=== PATIENT | female | born 1995 | race Caucasian/White ===

== ENCOUNTER 2017-03-27 00:07 | Emergency (ER) | payer OTHER ==
[2017-03-27 00:14] VITALS: BMI 42.3
[2017-03-27] MEDS ORDERED: METOCLOPRAMIDE HCL INJECTION 10 MG/2 ML VIAL IVPB ONE (02:32)
[2017-03-27] MEDS ORDERED: SODIUM CHLORIDE 1,000 ML IV STA (02:32)
[2017-03-27] MEDS ORDERED: METOCLOPRAMIDE HCL INJECTION 10 MG/2 ML VIAL ONE (02:38)
[2017-03-27 02:56] LABS: BASOPHIL 0.3 % (0-2.0); EOSINOPHIL 0.4 % (0-4.5); MCH 30.1 pg (25.7-33.7); MCHC 34.5 g/dl (32.0-36.0); MEAN CELL VOLUME 87.3 fl (80-96); MEAN PLT VOLUME 9.7 fl (7.5-11.1); NEUTROPHILS 80.7 % (42.8-82.8); PLATELET COUNT 159 K/MM3 (134-434); RDW 13.6 % (11.6-15.6); WHITE BLOOD COUNT 7.8 K/mm3 (4.0-10.0)
--- NOTE | 2017-03-27 03:22 | PDOC ---
History of Present Illness - General Chief Complaint: Pain Stated Complaint: PAIN Time Seen by Provider: 03/27/17 02:07 History Source: Patient, Significant Other Exam Limitations: No Limitations - History of Present Illness Travel History: No Initial Comments: 03/27/17 03:17 21yo Female patient 18 weeks presents to ED c/o "stomach pains," nausea /vomiting with poor appetite since 12 noon yesterday. Patient states she has tried drinking Aurora and Sera janel, but unable to keep it down. She reports stool softener use w/ Last BM at 8pm. Patient denies vaginal bleeding, discharge , odor, dysuria, hematuria, constipation, diarrhea, or any other complaints at this time. Timing/Duration: reports: getting worse Quality: reports: mild Abdominal Pain Onset Location: reports: epigastric Pain Radiation: reports: no radiation Activities at Onset: reports: no specific activity Treatment Prior to Arrive: improves with: laxative. worse with: analgesics, antacids, cold pack, heat, enema, other Aggravating Factors: worse with: None, Defecation, Eating, Emotional upset, Exertion, [place], Movement, Voiding, Change in position Alleviating Factors: improves with: Defecation. worse with: None, Belching, Shallow Breathing, Eating, Holding Breath, Passing Gas, Change in Position, Rest , Voiding, Vomiting Past History - Travel Traveled outside of the country in the last 30 days: No Close contact w/someone who was outside of country & ill: No - Past Medical History Allergies/Adverse Reactions: Allergies Allergy/AdvReac Type Severity Reaction Status Date / Time No Known Allergies Allergy Verified 03/27/17 00:14 Home Medications: Ambulatory Orders Amoxicillin - [Amoxicillin 500mg Capsule -] 500 mg PO BID #14 capsule 03/27/17 Other medical history: denies - Psycho/Social/Smoking Cessation Hx Suicidal Ideation: No Smoking Status: No Smoking History: Never smoked Number of Cigarettes Smoked Daily: 0 Abd/GI Specific PMHX - Complaint Specific PMHX Colitis: No Diverticulitis: No Gall Bladder Disease: No GERD: No Hepatitis: No Irritable Bowel Synd (IBS): No Pancreatitis: No GI Ulcer Disease: No Review of Systems - Review of Systems Able to Perform ROS?: Yes Is the patient limited Austrian proficient: No Constitutional: No: Chills, Fever Cardiac (ROS): No: Chest Pain, Palpitations ABD/GI: Yes: Nausea, Poor Fluid Intake, Vomiting, Abdominal cramping ( Epigastric region). No: Constipated, Diarrhea, Poor Appetite : No: Burning, Dysuria, Frequency, Flank Pain, Hematuria, Pain, Urgency Musculoskeletal: No: Back Pain Hematologic/Lymphatic: Yes: Symptoms Reported *Physical Exam - Vital Signs Last Vital Signs Temp Pulse Resp BP Pulse Ox 100.7 F H 109 H 18 129/70 99 03/27/17 00:11 03/27/17 00:11 03/27/17 00:11 03/27/17 00:11 03/27/17 00:11 - Physical Exam General Appearance: Yes: Nourished, Appropriately Dressed. No: Apparent Distress, Mild Distress, Moderate Distress, Severe Distress Neck: positive: Trachea midline, Supple. negative: Decreased range of motion, Stridor, Lymphadenopathy (R), Lymphadenopathy (L) Respiratory/Chest: positive: Lungs Clear, Normal Breath Sounds. negative: Chest Tender, Respiratory Distress, Accessory Muscle Use, Labored Respiration, Rapid RR Cardiovascular: positive: Regular Rhythm, Regular Rate Gastrointestinal/Abdominal: positive: Normal Bowel Sounds, Soft, Distended (18 weeks preg). negative: Guarding, Rebound, Tenderness Musculoskeletal: positive: Normal Inspection. negative: CVA Tenderness Extremity: positive: Normal Capillary Refill, Normal Inspection, Normal Range of Motion. negative: Pedal Edema, Swelling, Calf Tenderness, Erythema, Inflammation Integumentary: positive: Normal Color, Dry, Warm. negative: Erythema, Rash, Swelling Neurologic: positive: memorandum statement clerk II-XII NML intact, Fully Oriented, Alert, Normal Mood/ Affect, Normal Response, Motor Strength /5 ED Treatment Course - LABORATORY CBC & Chemistry Diagram: 03/27/17 02:00 03/27/17 02:00 - ADDITIONAL ORDERS Additional order review: 03/27/17 02:00 RBC 4.33 MCV 87.3 MCHC 34.5 RDW 13.6 MPV 9.7 Neutrophils % 80.7 Lymphocytes % 13.1 Monocytes % 5.5 Eosinophils % 0.4 Basophils % 0.3 - Medications Given in the ED: ED Medications Discontinued Medications Generic Name Dose Route Start Last Admin Trade Name Freq PRN Reason Stop Dose Admin Metoclopramide HCl 10 mg 03/27/17 02:32 03/27/17 02:59 Reglan Injection - IVPB 03/27/17 02:33 10 mg ONCE ONE Administration Medical Decision Making - Medical Decision Making 03/27/17 05:12 Patient reports feeling better. Would like to go home and will return in the morning if symptoms return or worsen. *DC/Admit/Observation/Transfer Diagnosis at time of Disposition: Mild dehydration UTI (urinary tract infection) Qualifiers: Urinary tract infection type: urethritis Qualified Code(s): N34.2 - Other urethritis - Discharge Dispostion Disposition: HOME Condition at time of disposition: Improved Admit: No - Prescriptions Prescriptions: Amoxicillin - [Amoxicillin 500mg Capsule -] 500 mg PO BID #14 capsule - Patient Instructions Printed Discharge Instructions: DI for Urinary Tract Infection (UTI) Additional Instructions: FOLLOW UP WITH YOUR PRIMARY CARE PROVIDER/OB-TOOL MAINTENANCE TECHNICIAN. CALL TO SCHEDULE APPOINTMENT. TAKE MEDICATIONS PRESCRIBED. DRINK PLENTY FLUIDS AND INCREASE YOUR CALORIE INTAKE YOU ARE EATING FOR 2 PEOPLE. RETURN IF SYMPTOMS WORSEN OR ANY CONCERNS DISCUSSED. Print Language: KHMER
[2017-03-27 03:28] LABS: ALBUMIN 3.3 g/dl (3.4-5.0); ALK PHOS 68 U/L (45-117); AMYLASE 33 U/L (25-115); ANION GAP 12 (8-16); BILIRUBIN,TOTAL 0.5 mg/dL (0.2-1.0); CALCIUM 8.9 mg/dL (8.5-10.1); CO2 23 mmol/L (21-32); CREATININE 0.5 mg/dL (0.55-1.02); GLUCOSE,RANDOM 96 mg/dL (74-106); SGOT/AST 29 U/L (15-37); SGPT/ALT 38 U/L (12-78); TOT PROT 7.3 g/dl (6.4-8.2)
[2017-03-27 04:29] LABS: URINE APPEARANCE CLEAR; URINE BILIRUBIN NEGATIVE (NEGATIVE); URINE BLOOD NEGATIVE (NEGATIVE); URINE COLOR STRAW; URINE GLUCOSE (UA) NEGATIVE (NEGATIVE); URINE KETONE 2+ (NEGATIVE); URINE NITRITE NEGATIVE (NEGATIVE); URINE PROTEIN NEGATIVE (NEGATIVE); URINE UROBILINOGEN NEGATIVE E.U./dl (0.2-1.0)
[2017-03-27 04:37] LABS: URINE LEUK ESTERASE TRACE (NEGATIVE)
[2017-03-27 04:42] LABS: URINE MUCUS RARE; URINE RBC 1 /hpf (0-3); URINE WBC 6 /hpf (3-5)
[2017-03-27 05:15] VITALS: BP 99/45; PULSE 93; TEMP 99.1
[2017-03-27] MEDS ORDERED: AMOXICILLIN 500 MG CAPSULE (FP) PO ONE (05:24)
[2017-03-27] MEDS ORDERED: AMOXICILLIN 500 MG CAPSULE (FP) ONE (05:27)
== END 2017-03-27 05:31 | disposition home or self-care (01) ==
LOC: JER 00:07
PROC: 3E033GC Introduction of Other Therapeutic Substance into Peripheral Vein, Percutaneous Approach (ICD-10-PCS; principal; 2017-03-27)
DX: O23.22 Infections of urethra in pregnancy, second trimester (principal); Z3A.18 18 weeks gestation of pregnancy; E86.0 Dehydration
CPT/HCPCS: 36415; 80053; 81003; 81015; 82150; 83690; 85025; 87086; 96374; 99283-25

== ENCOUNTER 2017-08-27 12:20 | Inpatient (IN) | payer OTHER ==
--- NOTE | 2017-08-27 15:10 | HP ---
Past Medical History - Admission Chief Complaint: Labor pain History of Present Illness: 22 yo , @ 40 weeks gestation, EDC 08/27/17, presents c/o labor pain not associated with rupture of membrane. History Source: Patient Limitations to Obtaining History: No Limitations - Past Medical History ...: 1 ...Para: 0 ...EDC by Sono: 08/27/17 - Past Surgical History Past Surgical History: Yes: None Hx Myomectomy: No Hx Transabdominal Cerclage: No - Smoking History Smoking history: Never smoked Aproximately how many cigarettes per day: 0 - Alcohol/Substance Use Hx Alcohol Use: No History of Substance Use: reports: None - Social History Usual Living Arrangement: Yes: With Significant Other History of Recent Travel: No Home Medications - Allergies Allergies/Adverse Reactions: Allergies Allergy/AdvReac Type Severity Reaction Status Date / Time Fish Containing Products Allergy Verified 08/27/17 13:12 - Home Medications Home Medications: Ambulatory Orders NK [No Known Home Medication] 07/29/17 Family Disease History - Family Disease History Family History: Unremarkable Review of Systems - Review of Systems Constitutional: reports: No Symptoms Eyes: reports: No Symptoms HENT: reports: No Symptoms Neck: reports: No Symptoms Cardiovascular: reports: No Symptoms Respiratory: reports: No Symptoms Gastrointestinal: reports: No Symptoms Genitourinary: reports: Pain Neurological: reports: No Symptoms Endocrine: reports: No Symptoms Psychiatric: reports: No Symptoms Pain Intensity: 4 Physical Exam - Maternity Vital Signs: Vital Signs Temperature 98.2 F 08/27/17 12:25 Pulse Rate 71 08/27/17 13:34 Respiratory Rate 20 08/27/17 13:34 Blood Pressure 125/64 08/27/17 13:34 O2 Sat by Pulse Oximetry (%) Constitutional: Yes: Well Nourished Eyes: Yes: Conjunctiva Clear HENT: Yes: Atraumatic Neck: Yes: Supple Cardiovascular: Yes: Regular Rate and Rhythm Lungs: Clear to auscultation Breast(s): Yes: WNL - Abdominal Exam/OB Number of Fetuses: Single Presentation: Vertex - Vaginal Exam/OB Dilatation (cm): 4 Effacement (%): 80 Amniotic Membrane Status: Intact Presentation: Vertex/Position Station: -2 - Physical Exam Musculoskeletal: Yes: WNL ...Motor Strength: WNL Psychiatric: Yes: Alert, Oriented Problem List - Problems (1) Pain during labor Code(s): O99.89 - OTH DISEASES AND CONDITIONS COMPL PREG/CHLDBRTH; R52 - PAIN, UNSPECIFIED Assessment/Plan IUP @ 40 weeks Early Labor Admit to L&D Analgesia as needed Anticipate
[2017-08-27 15:16] VITALS: BMI 47.2
[2017-08-27 16:51] LABS: BASOPHIL 0.5 % (0-2.0); EOSINOPHIL 1.4 % (0-4.5); MCH 29.8 pg (25.7-33.7); MCHC 34.4 g/dl (32.0-36.0); MEAN CELL VOLUME 86.7 fl (80-96); MEAN PLT VOLUME 11.1 fl (7.5-11.1); NEUTROPHILS 67.9 % (42.8-82.8); PLATELET COUNT 139 K/MM3 (134-434); RDW 15.7 % (11.6-15.6); WHITE BLOOD COUNT 7.6 K/mm3 (4.0-10.0)
[2017-08-27 17:00] LABS: INR 0.89 (0.82-1.09); PROTHROMBIN TIME (PATIENT) 10.1 SEC (9.98-11.88)
[2017-08-27 17:03] LABS: ACTIVATED PTT 30.3 SECONDS (26.9-34.4)
[2017-08-27 17:25] LABS: ANION GAP 11 (8-16); CALCIUM 8.9 mg/dL (8.5-10.1); CO2 21 mmol/L (21-32); CREATININE 0.5 mg/dL (0.55-1.02); GLUCOSE,RANDOM 73 mg/dL (74-106)
[2017-08-27] MEDS ORDERED: DEXTROSE 5%-LACTATED RINGERS 1,000 ML IV SCH (19:30)
[2017-08-27] MEDS ORDERED: OXYTOCIN 15 UNITS/ LR 250 ML 15 UNIT/250 ML INFUS.BAG IV SCH (22:45)
[2017-08-28] MEDS ORDERED: PROMETHAZINE HCL 25 MG/1 ML VIAL IVPB ONE (01:45)
[2017-08-28] MEDS ORDERED: BUTORPHANOL TARTRATE 1 MG/ML VIAL IVPB ONE (01:45)
[2017-08-28] MEDS ORDERED: ELECTROLYTE-148 SOLN 1,000 ML IV ONE (05:00)
[2017-08-28] MEDS ORDERED: AMPICILLIN - 2 GM in SODIUM CHLORIDE 100 ML IVPB ONE (06:15)
[2017-08-28] MEDS ORDERED: ACETAMINOPHEN 325 MG TABLET (FP) PO ONE (06:15)
[2017-08-28] MEDS ORDERED: CITRIC ACID/SODIUM CITRATE 30 ML UNIT-DOSE CUP PO ONE (08:30)
--- NOTE | 2017-08-28 08:34 | PN ---
Progress Note (short form) - Note Progress Note: Patient seen and evaluated She's status post Stadol. Cervical exam has not changed Heart rate is not too reassuring. Decision made for . Consent signed Anesthesia to see patient Problem List - Problems (1) Pain during labor Code(s): O99.89 - OTH DISEASES AND CONDITIONS COMPL PREG/CHLDBRTH; R52 - PAIN, UNSPECIFIED
[2017-08-28] MEDS: ELECTROLYTE-148 SOLN 1,000 ML IV SCH ×2 (10:23→11:20)
[2017-08-28] MEDS ORDERED: METHYLERGONOVINE MALEATE 0.2 MG/1 ML AMP IM PRN (10:46)
--- NOTE | 2017-08-28 10:46 | OP ---
Operative Note - Note: Operative Date: 08/28/17 Pre-Operative Diagnosis: Arrest of descent Operation: Primary Low transverse Post-Operative Diagnosis: Same as Pre-op Surgeon: Charissa Burns Special Education Aide: Ana Walls Anesthesia: Spinal Specimens Removed: Placenta
[2017-08-28] MEDS: OXYTOCIN 20 UNITS in 0.9% NS 20 UNIT/1,000 ML INFUS.BAG IV SCH ×2 (12:20→20:30)
--- NOTE | 2017-08-28 12:21 | SURG ---
Surgery Cooker Mechanic Note Cooker Mechanic: Ana Walls PA-C Date of Service: 08/28/17 Diagnosis: arrest of decent Procedure: Primary Low transverse I was present for the entirety of the operative procedure. For further detail, please refer to operative report. Visit type - Case Type Case Type: Scheduled Admission - Emergency Emergency Visit: No - New patient This patient is new to me today: Yes Date on this admission: 08/28/17
[2017-08-28] MEDS ORDERED: ONDANSETRON 4 MG/2 ML VIAL IVPUSH PRN (12:28)
[2017-08-28] MEDS ORDERED: IBUPROFEN 800 MG/8 ML IJ IVPB ONE (13:30)
[2017-08-28] MEDS: FERROUS SO4 325 MG TABLET (FP) PO SCH (22:28)
[2017-08-29] MEDS: IBUPROFEN 600 MG TABLET (FP) PO PRN ×4 (01:29→19:34)
[2017-08-29] MEDS: SIMETHICONE 80 MG TAB.CHEW (FP) PO PRN ×2 (01:30→06:40)
[2017-08-29] MEDS: oxyCODONE HCL 5 MG TABLET PO PRN ×2 (01:30→06:40)
[2017-08-29 08:16] LABS: BASOPHIL 0.3 % (0-2.0); EOSINOPHIL 0.7 % (0-4.5); MCH 29.1 pg (25.7-33.7); MCHC 33.7 g/dl (32.0-36.0); MEAN CELL VOLUME 86.2 fl (80-96); MEAN PLT VOLUME 10.1 fl (7.5-11.1); NEUTROPHILS 78.7 % (42.8-82.8); PLATELET COUNT 103 K/MM3 (134-434); RDW 16.1 % (11.6-15.6); WHITE BLOOD COUNT 9.9 K/mm3 (4.0-10.0)
[2017-08-29] MEDS: FERROUS SO4 325 MG TABLET (FP) PO SCH ×2 (09:24→22:11)
[2017-08-29] MEDS: PRENATAL VITAMINS W/ FOLIC ACID TABLET (FP) PO SCH (09:24)
[2017-08-29] MEDS ORDERED: BISACODYL 10 MG SUPP.RECT RC PRN (10:46)
--- NOTE | 2017-08-29 12:27 | PN ---
Progress Note, Physician Chief Complaint: Pt. ambulating and voiding, pain controlled, no anesthesia complaints. - Current Medication List Current Medications: Active Medications Bisacodyl (Dulcolax Suppository -) 10 mg RC PRN PRN PRN Reason: CONSTIPATION Diphenhydramine HCl (Benadryl Injection -) 25 mg IVPUSH Q4H PRN PRN Reason: Pruritis Ferrous Sulfate (Feosol -) 325 mg PO BID [facility] Last Admin: 08/29/17 09:24 Dose: 325 mg Parenteral Electrolytes (Plasma-Lyte 148 -) 1,000 mls @ 125 mls/hr IV ASDIR [facility] Last Admin: 08/28/17 11:20 Dose: 125 mls/hr Oxytocin/Sodium Chloride (Normal Saline+20 Units Oxytocin -) 20 unit in 1,000 mls @ 125 mls/hr IV ASDIR [facility] Last Admin: 08/28/17 20:30 Dose: 125 mls/hr Ibuprofen (Motrin -) 600 mg PO Q4H PRN PRN Reason: PAIN Last Admin: 08/29/17 06:40 Dose: 600 mg Methylergonovine Maleate (Methergine Injection -) 0.2 mg IM Q4H PRN PRN Reason: Excessive Bleeding (L&D) Ondansetron HCl (Zofran Injection) 4 mg IVPUSH Q4H PRN PRN Reason: NAUSEA Oxycodone HCl (Roxicodone -) 5 mg PO Q4H PRN PRN Reason: PAIN LEVEL 1-5 Last Admin: 08/29/17 06:40 Dose: 5 mg Multivit/Folic Acid/Iron ( Vitamins (Sjr) -) 1 tab PO DAILY [facility] Last Admin: 08/29/17 09:24 Dose: 1 tab Simethicone (Mylicon -) 80 mg PO Q4H PRN PRN Reason: GAS Last Admin: 08/29/17 06:40 Dose: 80 mg - Objective Vital Signs: Vital Signs Temperature 98.0 F 08/29/17 08:00 Pulse Rate 81 08/29/17 08:00 Respiratory Rate 18 08/29/17 08:00 Blood Pressure 108/64 08/29/17 08:00 O2 Sat by Pulse Oximetry (%) 99 08/28/17 13:15 Constitutional: Yes: Well Nourished, No Distress, Calm Musculoskeletal: Yes: WNL Neurological: Yes: WNL, Alert, Oriented ...Motor Strength: WNL Labs: CBC, BMP 08/29/17 07:45 08/27/17 16:00 INR, PTT INR 0.89 (0.82-1.09) 08/27/17 16:00 Assessment/Plan POD#1 s/p primary under spinal with duramorph. Doing well. D/C from anesthesia care.
[2017-08-30] MEDS: IBUPROFEN 600 MG TABLET (FP) PO PRN ×2 (06:36→13:20)
--- NOTE | 2017-08-30 09:08 | OP ---
DATE OF OPERATION: 08/27/2017 PREOPERATIVE DIAGNOSIS: Arrest of descent, intrauterine at 40 weeks. POSTOPERATIVE DIAGNOSIS: Arrest of descent, intrauterine at 40 weeks. PROCEDURE: Primary low transverse section. SURGEON: Charissa Burns MD HELP DESK ADMINISTRATOR: DEANGELO Li ANESTHESIA: Spinal. COMPLICATIONS: None. ESTIMATED BLOOD LOSS: 500 mL DESCRIPTION OF PROCEDURE: Patient was taken to the operating room where spinal anesthesia was administered. Patient was then prepped and draped in proper sterile fashion. A Pfannenstiel skin incision was made and carried down to the underlying layer of fascia. The fascia was incised in the midline and extended laterally. The superior aspect of the fascial incision was then grasped with a Isabel clamp, elevated, and the rectus muscle dissected out bluntly. Attention was then turned to the inferior aspect of the fascial incision, which in a similar fashion, was then grasped with a Isabel clamp, elevated, and the rectus muscle dissected off bluntly. The rectus muscle was then in the midline. The peritoneum identified and entered sharply with the Metzenbaum scissors. The peritoneum incision was then grasped with a pickup and entered sharply with the Metzenbaum scissors. This incision was extended superiorly and inferiorly with good visualization of the bladder. Then, the vesicouterine peritoneum was then grasped with a pickup and entered sharply with the Metzenbaum scissors. This incision was extended laterally and a bladder flap created digitally. The bladder blade was then inserted, and the lower uterine segment was then incised using a 10 blade. This incision was extended laterally, and the head delivered atraumatically. Nose and mouth were suctioned and the cord clamped and cut. The infant delivered to the awaiting national accounts sales. The placenta was then removed manually. The uterus exteriorized and cleared of all clots and debris. The uterine incision was repaired using 0 Biosyn in a running locked fashion. A second layer of the same suture was used as a means to provide excellent hemostasis. Then, the pelvis was then completely irrigated. The uterus was returned to the abdomen. The peritoneum was closed using 2-0 Biosyn, the fascia was reapproximated using 0 Vicryl in a running fashion, and the skin was closed in a subcuticular fashion using 3-0 Vicryl. Patient tolerated the procedure well. Patient was then taken to PACU in stable condition. PATHOLOGY: Placenta. Carter [id number]
[2017-08-30] MEDS: PRENATAL VITAMINS W/ FOLIC ACID TABLET (FP) PO SCH (09:45)
[2017-08-30] MEDS: FERROUS SO4 325 MG TABLET (FP) PO SCH ×2 (09:45→21:23)
--- NOTE | 2017-08-30 11:12 | PN ---
Post Progress Note Type of Delivery: Primary C/S Vital Signs: Vital Signs Temperature 98.7 F 08/29/17 22:00 Pulse Rate 104 H 08/29/17 22:00 Respiratory Rate 18 08/29/17 22:00 Blood Pressure 114/63 08/29/17 22:00 O2 Sat by Pulse Oximetry (%) 99 08/28/17 13:15 - Labs Labs: CBC WBC 9.9 K/mm3 (4.0-10.0) D 08/29/17 07:45 RBC 3.44 M/mm3 (3.60-5.2) L D 08/29/17 07:45 Hgb 10.0 GM/dL (10.7-15.3) L D 08/29/17 07:45 Hct 29.6 % (32.4-45.2) L D 08/29/17 07:45 MCV 86.2 fl (80-96) 08/29/17 07:45 MCH 29.1 pg (25.7-33.7) 08/29/17 07:45 MCHC 33.7 g/dl (32.0-36.0) 08/29/17 07:45 RDW 16.1 % (11.6-15.6) H 08/29/17 07:45 Plt Count 103 K/MM3 (134-434) L D 08/29/17 07:45 MPV 10.1 fl (7.5-11.1) 08/29/17 07:45 Neutrophils % 78.7 % (42.8-82.8) 08/29/17 07:45 Lymphocytes % 15.9 % (8-40) D 08/29/17 07:45 Monocytes % 4.4 % (3.8-10.2) 08/29/17 07:45 Eosinophils % 0.7 % (0-4.5) 08/29/17 07:45 Basophils % 0.3 % (0-2.0) 08/29/17 07:45
[2017-08-30] MEDS: oxyCODONE HCL 5 MG TABLET PO PRN (13:19)
--- NOTE | 2017-08-30 14:36 | PN ---
Post Progress Note - Subjective Subjective: 22 yo Para 1 status post primary , seen and evaluated. She c/o severe headache and blurry vision. Blood pressure is WNL. Post Day: 1 Type of Delivery: Primary C/S Vital Signs: Vital Signs Temperature 99.3 F 08/30/17 10:00 Pulse Rate 92 H 08/30/17 10:00 Respiratory Rate 20 08/30/17 10:00 Blood Pressure 114/77 08/30/17 10:00 O2 Sat by Pulse Oximetry (%) 99 08/28/17 13:15 Breast Exam: Yes: Soft Uterus: Yes: Fundus Firm Incision: Yes: Dressing dry and intact Abdomen/GI: Yes: Abdomen soft Lochia: Yes: Rubra Lochia, amount: Small Extremities: Yes: Calves non-tender Perineum: Yes: Intact Activity: Other (She's lying in bed) - Labs Labs: CBC WBC 9.9 K/mm3 (4.0-10.0) D 08/29/17 07:45 RBC 3.44 M/mm3 (3.60-5.2) L D 08/29/17 07:45 Hgb 10.0 GM/dL (10.7-15.3) L D 08/29/17 07:45 Hct 29.6 % (32.4-45.2) L D 08/29/17 07:45 MCV 86.2 fl (80-96) 08/29/17 07:45 MCH 29.1 pg (25.7-33.7) 08/29/17 07:45 MCHC 33.7 g/dl (32.0-36.0) 08/29/17 07:45 RDW 16.1 % (11.6-15.6) H 08/29/17 07:45 Plt Count 103 K/MM3 (134-434) L D 08/29/17 07:45 MPV 10.1 fl (7.5-11.1) 08/29/17 07:45 Neutrophils % 78.7 % (42.8-82.8) 08/29/17 07:45 Lymphocytes % 15.9 % (8-40) D 08/29/17 07:45 Monocytes % 4.4 % (3.8-10.2) 08/29/17 07:45 Eosinophils % 0.7 % (0-4.5) 08/29/17 07:45 Basophils % 0.3 % (0-2.0) 08/29/17 07:45 Problem List - Problems (1) Pain during labor Code(s): O99.89 - OTH DISEASES AND CONDITIONS COMPL PREG/CHLDBRTH; R52 - PAIN, UNSPECIFIED (2) Status post normal vaginal delivery Code(s): POZ0967 - (3) Spinal anesthesia-induced headache during puerperium Code(s): O89.4 - SPINAL AND EPIDUR ANESTHESIA-INDUCED HDACHE DURING THE PUERP Assessment/Plan Status post Spinal Headache Anesthesia consult Continue observation
--- NOTE | 2017-08-30 16:40 | PN ---
Progress Note (short form) - Note Progress Note: S: Pt. POD #2 s/p with complaint of postural headache. Very bad headache when sitting or standing, completely resolves while supine. Over the course of the day, the headache has worsened. dull pain radiates form front to her neck, +photophobia, no diplopia. Not like her typical headaches which she rarely gets. Attempted conservative therapy this am with fluids caffeine, NSAIDs and tylenol with no relief. Pt. now requesting an epidural blood patch. All risks, benefits and alternatives explained to the patient with her family members present. O: CBC WBC 9.9 K/mm3 (4.0-10.0) D 08/29/17 07:45 RBC 3.44 M/mm3 (3.60-5.2) L D 08/29/17 07:45 Hgb 10.0 GM/dL (10.7-15.3) L D 08/29/17 07:45 Hct 29.6 % (32.4-45.2) L D 08/29/17 07:45 MCV 86.2 fl (80-96) 08/29/17 07:45 MCH 29.1 pg (25.7-33.7) 08/29/17 07:45 MCHC 33.7 g/dl (32.0-36.0) 08/29/17 07:45 RDW 16.1 % (11.6-15.6) H 08/29/17 07:45 Plt Count 103 K/MM3 (134-434) L D 08/29/17 07:45 MPV 10.1 fl (7.5-11.1) 08/29/17 07:45 Neutrophils % 78.7 % (42.8-82.8) 08/29/17 07:45 Lymphocytes % 15.9 % (8-40) D 08/29/17 07:45 Monocytes % 4.4 % (3.8-10.2) 08/29/17 07:45 Eosinophils % 0.7 % (0-4.5) 08/29/17 07:45 Basophils % 0.3 % (0-2.0) 08/29/17 07:45 INR, PTT INR 0.89 (0.82-1.09) 08/27/17 16:00 A/P and brief procedure note: 1. Pt's symptoms consistant with a post-dural puncture headache. Failed conservative therapy, requesting an epidural blood patch. 2. Pt. sitting, sterile prep and drape. lido 1% L3-4. 17 gauge tuohy +LORTA at 7cm. no blood, no csf, no paresthesia. 12cc of sterile blood injected. Injection stopped whne patient complained of neck pressure. Headache resolved while sitting. no complicatons.
--- NOTE | 2017-08-31 08:45 | PN ---
Progress Note (short form) - Note Progress Note: pod 3 s/p c/s , blood patch , no headache CBC, BMP 08/29/17 07:45 08/27/17 16:00 Last Vital Signs Temp Pulse Resp BP Pulse Ox 98.3 F 90 20 127/69 99 08/30/17 22:00 08/30/17 22:00 08/30/17 22:00 08/30/17 22:00 08/28/17 13:15 abdomen soft, no distension, no cva incision dry, clean no calf tenderness plan ambulate , observe
[2017-08-31 09:12] LABS: BASOPHIL 0.5 % (0-2.0); EOSINOPHIL 1.4 % (0-4.5); MCH 29.4 pg (25.7-33.7); MCHC 33.8 g/dl (32.0-36.0); MEAN PLT VOLUME 9.7 fl (7.5-11.1); NEUTROPHILS 72.6 % (42.8-82.8); PLATELET COUNT 133 K/MM3 (134-434); RDW 15.9 % (11.6-15.6); WHITE BLOOD COUNT 9.3 K/mm3 (4.0-10.0)
[2017-08-31] MEDS: FERROUS SO4 325 MG TABLET (FP) PO SCH ×2 (10:08→21:35)
[2017-08-31] MEDS: PRENATAL VITAMINS W/ FOLIC ACID TABLET (FP) PO SCH (10:08)
[2017-08-31] MEDS: SIMETHICONE 80 MG TAB.CHEW (FP) PO PRN (12:41)
[2017-08-31] MEDS: IBUPROFEN 600 MG TABLET (FP) PO PRN (12:41)
[2017-09-01] MEDS: IBUPROFEN 600 MG TABLET (FP) PO PRN (08:35)
--- NOTE | 2017-09-01 09:16 | DS ---
Physical Exam-SOAKERS SUPERVISOR Vital Signs: Vital Signs Temperature 98.6 F 08/31/17 21:29 Pulse Rate 84 08/31/17 21:29 Respiratory Rate 20 08/31/17 21:29 Blood Pressure 111/76 08/31/17 21:29 O2 Sat by Pulse Oximetry (%) 99 08/28/17 13:15 Constitutional: Yes: Well Nourished, No Distress, Calm Eyes: Yes: WNL, Conjunctiva Clear, EOM Intact HENT: Yes: WNL, Atraumatic, Normocephalic Neck: Yes: WNL, Supple, Trachea Midline Cardiovascular: Yes: WNL, Regular Rate and Rhythm Respiratory: Yes: WNL, Regular, CTA Bilaterally Gastrointestinal: Yes: WNL ...Rectal Exam: Yes: WNL Renal/: Yes: WNL ....Post : Yes: Uterus firm, Uterus non-tender, Slight lochia rubra Breast(s): Yes: WNL Musculoskeletal: Yes: WNL Extremities: Yes: WNL Integumentary: Yes: WNL Wound/Incision: Yes: Clean/Dry, Well Approximated, Sutures Intact Neurological: Yes: WNL, Alert, Oriented ...Motor Strength: WNL Psychiatric: Yes: WNL, Alert, Oriented Labs: CBC, BMP 08/31/17 08:55 08/27/17 16:00 Delivery - Delivery Section: Primary Type of Anesthesia: Spinal Episiotomy/Laceration: None EBL (cc): 500 Delivery, Single - Stages of Labor Date 1st Stage Initiatied: 08/27/17 Time 1st Stage Initiated: 08:00 Date of Delivery: 08/28/17 Time of Delivery: 11:26 Time Placenta Delivered: 11:30 - Condition of [place]attan Worker/Laborer Wharf Present: Yes Name: Estephanie Chung Infant Gender: Male Weight: 8 lb 12 oz Total Hours ROM (Hrs/Mins): 25/06 - 1 Minute Total Score: 9 5 Minutes Total Score: 9 - [place] Feeding Plan Initial Plan: Elected not to breastfeed exclusively throughout hospitalization Discharge Summary Current Active Problems Pain during labor (Acute) Spinal anesthesia-induced headache during puerperium (Acute) Status post normal vaginal delivery (Acute) Procedures: Principal: primary LST c/s Condition: Good - Instructions Diet, Activity, Other Instructions: regular diet, follow up h care 1 week, if pain, heavy bleeding ,fever call md Referrals: Arcadio Hawkins MD [Staff Physician] - Disposition: HOME - Home Medications Comprehensive Discharge Medication List: Ambulatory Orders Ibuprofen [Motrin -] 600 mg PO QID #28 tablet 09/01/17
[2017-09-01] MEDS: FERROUS SO4 325 MG TABLET (FP) PO SCH (10:31)
[2017-09-01] MEDS: PRENATAL VITAMINS W/ FOLIC ACID TABLET (FP) PO SCH (10:31)
[2017-09-01 12:40] VITALS: BP 119/79; PULSE 92; TEMP 99
--- NOTE | 2017-09-05 13:54 | PATH ---
Surgical Pathology Report Patient Name: TRAVIS PHILLIPS [facility]. Rec. 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 Specimen(s) Received PLACENTA Clinical History Final Diagnosis PLACENTA, DELIVERY: FOCALLY DISRUPTED THIRD TRIMESTER PLACENTA WITH INTERVILLOUS THROMBI, ACUTE CHORIOAMNIONITIS, AND PARAMARGINALLY INSERTED THREE VESSEL UMBILICAL CORD WITH ACUTE FUNISITIS. Electronically Signed Durga Denney M.D. Gross Description The specimen is received fresh labeled placenta and is a 536 gram, 16.5 x 14.0 x 3.2 cm. placenta with attached membranes and umbilical cord. The attached membranes are stephen, translucent with focal opacities and insert marginally. The umbilical cord measures 33 cm. in length and averages 1 cm. in diameter. The cord inserts eccentrically, 1.5 cm. to the nearest margin. No true knots or strictures are identified. Cut surface of the umbilical cord reveals 3 vessels. The surface is salvador-blue with minimal fibrin deposition and appropriate caliber vessels. The maternal surface is red-brown with focal defects. Sectioning reveals 2 stephen, firm intraparenchymal lesions averaging 1.5 cm in greatest dimension. The remaining placental parenchyma is red-brown and spongy. Food Safety Coordinator sections are submitted in 4 cassettes as follows: 1-membrane roll and umbilical cord; 2-3-lesions; 4-additional motor vehicle field representative placenta. 09/03/201709/03/2017
== END 2017-09-01 13:15 | disposition home or self-care (01) | DRG 540 ==
LOC: JDEL 12:20 → JLDR 14:45 → J3W 08-28 14:02
PROVIDERS: ADMIT Obstetrics & Gynecology; ATTEND Obstetrics & Gynecology
PROC: 10D00Z1 Extraction of Products of Conception, Low, Open Approach (ICD-10-PCS; principal; 2017-08-27)
DX: O48.0 Post-term pregnancy (principal); O62.1 Secondary uterine inertia; O89.4 Spinal and epidural anesthesia-induced headache during the puerperium; O99.214 Obesity complicating childbirth; E66.01 Morbid (severe) obesity due to excess calories; Z3A.40 40 weeks gestation of pregnancy; Z37.0 Single live birth; Z68.42 Body mass index [BMI] 45.0-49.9, adult
CPT/HCPCS: 36415; 80048; 85025; 85610; 85730; 86593; 86850; 86900; 86901; 88307-TC

== ENCOUNTER 2017-09-03 15:02 | Emergency (ER) | payer OTHER ==
[2017-09-03 15:12] VITALS: BMI 37.8
[2017-09-03] MEDS ORDERED: ACETAMINOPHEN 325 MG TABLET (FP) PO ONE (15:12)
[2017-09-03] MEDS ORDERED: ONDANSETRON *ODT* 4 MG TABLET SL ONE (15:12)
--- NOTE | 2017-09-03 15:13 | PDOC ---
Rapid Medical Evaluation Chief Complaint: Pain Time Seen by Provider: 09/03/17 15:10 Medical Evaluation: Allergies Allergy/AdvReac Type Severity Reaction Status Date / Time Fish Containing Products Allergy Verified 08/27/17 13:12 09/03/17 15:10 The patient presents with a chief complaint of: L upper quadrant pain, nausea s/ p 08/28/17. site intact no drainage I have performed a brief in-person evaluation of this patient; Pertinent physical exam findings: TTP of the L upper quadrant I have ordered the following: CBC, CMP, Zofran, tylenol The patient will proceed to the ED for further evaluation.
[2017-09-03 15:25] LABS: EOSINOPHIL 0.5 % (0-4.5); NEUTROPHILS 83.2 % (42.8-82.8)
[2017-09-03 15:32] LABS: BASOPHIL 0.5 % (0-2.0); MCH 29.1 pg (25.7-33.7); MCHC 33.7 g/dl (32.0-36.0); MEAN CELL VOLUME 86.3 fl (80-96); PLATELET COUNT 230 K/MM3 (134-434); RDW 16.2 % (11.6-15.6); WHITE BLOOD COUNT 9.8 K/mm3 (4.0-10.0)
[2017-09-03 15:47] LABS: ALBUMIN 2.8 g/dl (3.4-5.0); ANION GAP 10 (8-16); BILIRUBIN,TOTAL 0.5 mg/dL (0.2-1.0); CALCIUM 8.7 mg/dL (8.5-10.1); CO2 23 mmol/L (21-32); CREATININE 0.5 mg/dL (0.55-1.02); GLUCOSE,RANDOM 96 mg/dL (74-106); SGOT/AST 235 U/L (15-37); SGPT/ALT 119 U/L (12-78); TOT PROT 7.6 g/dl (6.4-8.2)
[2017-09-03 15:48] LABS: ALK PHOS 140 U/L (45-117)
[2017-09-03] MEDS ORDERED: ONDANSETRON *ODT* 4 MG TABLET ONE (17:07)
[2017-09-03] MEDS ORDERED: ACETAMINOPHEN 325 MG TABLET (FP) ONE (17:07)
--- NOTE | 2017-09-03 18:41 | PDOC ---
History of Present Illness - History of Present Illness Initial Comments: 09/03/17 19:14 The patient is a 22 year old female, , on 09/01/17, with no significant past medical history, who presents to the emergency department with upper abdominal pain radiating from her epigastric region to her left flank and left back, nausea, vomiting, and lightheadedness since 10AM this morning. The patient reports waking up and feeling as if she was weak and would faint if she stood up alone. Shee reports her significant other, at bedside, assisted her out of bed this morning.. She reports a couple episodes of emesis around 10AM, nonbilious/nonbloody. The patient reports experiencing a similar abdominal pain probably around March and states she thought there was mention of something gallbladder at the time. The patient states she is currently and formula feeding. The patient reports a normal BM today. She denies chest pain, shortness of breath, headache and dizziness. She denies fever, chills, diarrhea and constipation. She denies dysuria, frequency, urgency and hematuria. <Miguelina Marcos - Last Filed: 09/04/17 01:26> <Gladys Hyde - Last Filed: 09/04/17 16:50> - General Chief Complaint: Pain Stated Complaint: ABD PAIN Time Seen by Provider: 09/03/17 15:10 Past History <Miguelina Marcos - Last Filed: 09/04/17 01:26> - Past Medical History Asthma: No Cancer: No Cardiac Disorders: No COPD: No Diabetes: No HTN: No Seizures: No Thyroid Disease: No - Suicide/Smoking/Psychosocial Hx Smoking Status: No Smoking History: Never smoked Have you smoked in the past 12 months: No Number of Cigarettes Smoked Daily: 0 Information on smoking cessation initiated: No Hx Alcohol Use: No Drug/Substance Use Hx: No Substance Use Type: None Hx Substance Use Treatment: No <Gladys Hyde - Last Filed: 09/04/17 16:50> - Past Medical History Allergies/Adverse Reactions: Allergies Allergy/AdvReac Type Severity Reaction Status Date / Time Fish Containing Products Allergy Verified 09/03/17 15:12 Home Medications: Ambulatory Orders NK [No Known Home Medication] 09/03/17 Abd/GI Specific PMHX - Complaint Specific PMHX Colitis: No Diverticulitis: No Gall Bladder Disease: No GERD: No Hepatitis: No Irritable Bowel Synd (IBS): No Pancreatitis: No GI Ulcer Disease: No <BarrettAristeoa Cassidy - Last Filed: 09/04/17 16:50> *Physical Exam - Vital Signs Last Vital Signs Temp Pulse Resp BP Pulse Ox 98.4 F 102 H 18 113/72 98 09/03/17 15:09 09/03/17 15:09 09/03/17 15:09 09/03/17 15:09 09/03/17 15:09 <Miguelina Marcos - Last Filed: 09/04/17 01:26> - Vital Signs Last Vital Signs Temp Pulse Resp BP Pulse Ox 98.4 F 102 H 18 113/72 98 09/03/17 15:09 09/03/17 15:09 09/03/17 15:09 09/03/17 15:09 09/03/17 15:09 <BarrettGladys Cassidy - Last Filed: 09/04/17 16:50> ED Treatment Course - LABORATORY CBC & Chemistry Diagram: 09/03/17 15:15 09/03/17 15:15 - ADDITIONAL ORDERS Additional order review: Laboratory Results 09/03/17 15:15 Sodium 139 Potassium 4.0 Chloride 106 Carbon Dioxide 23 Anion Gap 10 BUN 15 D Creatinine 0.5 L Creat Clearance w eGFR > 60 Random Glucose 96 D Calcium 8.7 Total Bilirubin 0.5 AST 235 H D ALT 119 H D Alkaline Phosphatase 140 H D Total Protein 7.6 Albumin 2.8 L 09/03/17 15:15 RBC 4.38 D MCV 86.3 MCHC 33.7 RDW 16.2 H MPV 9.0 Neutrophils % 83.2 H Lymphocytes % 11.7 D Monocytes % 4.1 Eosinophils % 0.5 Basophils % 0.5 - RADIOLOGY Radiograph Interpretation: EXAM#: TYPE/EXAM: RESULT: [id number] US/ABDOMEN US -LIMITED HISTORY PROVIDED: Abdominal pain, elevated liver function tests. Real time examination of the abdomen demonstrates the following: The gallbladder is normal in size and free of calculi with no evidence of intra or extrahepatic biliary duct dilatation. The liver is enlarged measuring 18.6 cm in craniocaudad dimension. It is hyperechoic in texture consistent with diffuse fatty infiltration. No discrete intrahepatic masses are identified. Hepatopedal flow is documented within the main portal vein. The pancreas is normal in size and texture with no pancreatic masses identified. The tail of the pancreas was not well visualized due to overlying bowel gas. There is no evidence of hydronephrosis or acute abnormalities of the right kidney. There is no evidence of AAA. The IVC is patent. IMPRESSION: Hepatomegaly and diffuse fatty infiltration of the liver. Reported By: Rodrigo Izaguirre MD 09/03/17 1949 EXAM: CT ABDOMEN AND PELVIS WITH CONTRAST No evidence for intrahepatic or subcapsular hematoma. Borderline hepatomegaly. Enlarged, heterogeneous uterus with small hyperdense foci in fundal endometrium , possibly changes but advise ultrasound if there is clinical concern for retained products of conception. Small emphysema and stranding in lower abdominal wall, consistent with postoperative changes due to section. 3 cm fluid focus along left aspect of site probably represents seroma. No bowel obstruction, colitis, free fluid or free air. Normal appendix. Unremarkable pancreas, kidneys and gallbladder. Kimberly Desouza M.D. 09/04/2017 01:23 EST - Medications Given in the ED: ED Medications Discontinued Medications Generic Name Dose Route Start Last Admin Trade Name Kevin PRN Reason Stop Dose Admin Acetaminophen 650 mg 09/03/17 15:12 09/03/17 17:19 Tylenol - PO 09/03/17 15:13 650 mg ONCE ONE Administration Ondansetron HCl 4 mg 09/03/17 15:12 09/03/17 17:12 Zofran Odt - SL 09/03/17 15:13 4 mg ONCE ONE Administration <Miguelina Marcos - Last Filed: 09/04/17 01:26> - LABORATORY CBC & Chemistry Diagram: 09/03/17 15:15 09/03/17 15:15 - ADDITIONAL ORDERS Additional order review: Laboratory Results 09/03/17 15:15 Sodium 139 Potassium 4.0 Chloride 106 Carbon Dioxide 23 Anion Gap 10 BUN 15 D Creatinine 0.5 L Creat Clearance w eGFR > 60 Random Glucose 96 D Calcium 8.7 Total Bilirubin 0.5 AST 235 H D ALT 119 H D Alkaline Phosphatase 140 H D Total Protein 7.6 Albumin 2.8 L 09/03/17 15:15 RBC 4.38 D MCV 86.3 MCHC 33.7 RDW 16.2 H MPV 9.0 Neutrophils % 83.2 H Lymphocytes % 11.7 D Monocytes % 4.1 Eosinophils % 0.5 Basophils % 0.5 - Medications Given in the ED: ED Medications Discontinued Medications Generic Name Dose Route Start Last Admin Trade Name Freq PRN Reason Stop Dose Admin Acetaminophen 650 mg 09/03/17 15:12 09/03/17 17:19 Tylenol - PO 09/03/17 15:13 650 mg ONCE ONE Administration Ondansetron HCl 4 mg 09/03/17 15:12 09/03/17 17:12 Zofran Odt - SL 09/03/17 15:13 4 mg ONCE ONE Administration <Gladys Hyde - Last Filed: 09/04/17 16:50> Medical Decision Making - Medical Decision Making 09/03/17 20:11 Dr. Burns, Family Day Care Provider, was called and the patient's case was discussed. Dr. Burns states she is on her way to the hospital and will stop by the ED to assess the patient. 09/03/17 20:55 Dr. Burns at bedside. <Miguelina Marcos - Last Filed: 09/04/17 01:26> - Medical Decision Making 09/03/17 20:15 22-year-old female who is 6 days status post a presents with epigastric pain and elevated liver enzymes. She did have episode of nausea and vomiting earlier. In reviewing her labs, she has a normal white count, no significant anemia, however, her liver function tests are all elevated. Total bili is within normal limits. Patient's blood pressure is normal at 113/77. She does not have a fever. Her is healing well. There is no signs of wound dehiscence of purulence I spoke to Dr. Gilbert about my concern because on the ultrasound she has hepatomegaly 09/04/17 16:49 pt's symptoms resolved and the ct scsan did not show any hepatic hematoma, it did show mild hepatomegaly, plan -pt to have repeat lfts and follow up w Dr Burns <Gladys Hyde - Last Filed: 09/04/17 16:50> *DC/Admit/Observation/Transfer <Miguelina Marcos - Last Filed: 09/04/17 01:26> <Gladys Hyde - Last Filed: 09/04/17 16:50> Diagnosis at time of Disposition: Elevated liver enzymes UTI (urinary tract infection) Qualifiers: Urinary tract infection type: urethritis Qualified Code(s): N34.2 - Other urethritis - Discharge Dispostion Disposition: HOME Condition at time of disposition: Stable - Referrals Referrals: Falguni Escobedo MD [Primary Care Provider] - Charissa Burns MD [Staff Physician] - - Patient Instructions Printed Discharge Instructions: DI for Epigastric Pain Additional Instructions: please have your liver enzymes repeated in 1 week return for any worsening symptoms - Post Discharge Activity
--- NOTE | 2017-09-03 20:56 | CON.OBG ---
Consult Consult Specialty:: WOOD CABINETMAKER Reason for Consultation:: Abdominal pain - History of Present Illness Chief Complaint: Abdominal pain / Nausea / vomiting History of Present Illness: 22 yo Para 1 status post primary 1 week ago presents to ER c/o left upper quadrant pain associated with nausea and vomiting. She denies any headache nor blurry vision. - History Source History Provided By: Patient Limitations to Obtaining History: No Limitations - Past Medical History ...: No ...: 1 ...Para: 1 - Past Surgical History Past Surgical History: Yes: - Alcohol/Substance Use Hx Alcohol Use: No History of Substance Use: reports: None - Smoking History Smoking history: Never smoked Have you smoked in the past 12 months: No Aproximately how many cigarettes per day: 0 - Social History Usual Living Arrangement: With Spouse History of Recent Travel: No Home Medications - Allergies Allergies/Adverse Reactions: Allergies Allergy/AdvReac Type Severity Reaction Status Date / Time Fish Containing Products Allergy Verified 09/03/17 15:12 - Home Medications Home Medications: Ambulatory Orders Ibuprofen [Motrin -] 600 mg PO QID #28 tablet 09/01/17 Family Disease History - Family Disease History Family History: Unremarkable Review of Systems - Review of Systems Constitutional: reports: No Symptoms Eyes: reports: No Symptoms HENT: reports: No Symptoms Neck: reports: No Symptoms Cardiovascular: reports: No Symptoms Respiratory: reports: No Symptoms Gastrointestinal: reports: Abdominal Pain, Nausea, Vomiting Breasts: reports: No Symptoms Reported Musculoskeletal: reports: No Symptoms Integumentary: reports: No Symptoms Neurological: reports: No Symptoms Endocrine: reports: No Symptoms Hematology/Lymphatic: reports: No Symptoms Psychiatric: reports: No Symptoms Pain Intensity: 5 Physical Exam-HARVEST SUPERVISOR Vital Signs: Vital Signs Temperature 98.4 F 09/03/17 15:09 Pulse Rate 102 H 09/03/17 15:09 Respiratory Rate 18 09/03/17 15:09 Blood Pressure 113/72 09/03/17 15:09 O2 Sat by Pulse Oximetry (%) 98 09/03/17 15:09 Constitutional: Yes: Well Nourished Eyes: Yes: Conjunctiva Clear HENT: Yes: Atraumatic Neck: Yes: Supple Cardiovascular: Yes: Regular Rate and Rhythm Respiratory: Yes: Regular Gastrointestinal: Yes: Normal Bowel Sounds ...Rectal Exam: Yes: WNL External Genitalia: Yes: Normal Wound/Incision: Yes: Well Approximated, Other (Healing wound) Neurological: Yes: Alert, Oriented ...Motor Strength: WNL Psychiatric: Yes: Alert, Oriented Labs: CBC, BMP 09/03/17 15:15 09/03/17 15:15 Problem List - Problems (1) LUQ abdominal pain Code(s): R10.12 - LEFT UPPER QUADRANT PAIN Assessment/Plan LUQ abdominal pain R/O Hepatic hematoma R/O HELLP F/U abdominal Cat scan F/U urinalysis
[2017-09-03 22:47] LABS: URINE APPEARANCE CLOUDY; URINE BILIRUBIN NEGATIVE (NEGATIVE); URINE BLOOD 3+ (NEGATIVE); URINE COLOR DKYELLOW; URINE GLUCOSE (UA) NEGATIVE (NEGATIVE); URINE KETONE TRACE (NEGATIVE); URINE NITRITE NEGATIVE (NEGATIVE); URINE UROBILINOGEN NEGATIVE mg/dL (0.2-1.0)
[2017-09-03 22:58] LABS: URINE BACTERIA RARE /hpf (NONE SEEN); URINE HYALINE CAST 1 /lpf; URINE MUCUS RARE; URINE PROTEIN 2+ (NEGATIVE); URINE RBC 31 /hpf (0-3); URINE WBC 55 /hpf (3-5)
[2017-09-04] MEDS ORDERED: AMOX TR/POT CLAV 500MG/125MG TABLETS (FP) PO STA (02:06)
[2017-09-04] MEDS ORDERED: AMOX TR/POT CLAV 500MG/125MG TABLETS (FP) ONE (02:12)
[2017-09-04 02:24] VITALS: BP 113/70; PULSE 80; TEMP 98
[2017-09-04 09:19] LABS: URINE LEUK ESTERASE 1+ (NEGATIVE)
== END 2017-09-04 02:24 | disposition home or self-care (01) ==
LOC: JER 15:02
DX: N34.2 Other urethritis (principal); R94.5 Abnormal results of liver function studies
CPT/HCPCS: 36415; 74177-TC; 76705-TC; 80053; 81003; 81015; 83690; 84703; 85025; 99282-25; Q9967

== ENCOUNTER 2017-09-15 16:49 | Emergency (ER) | payer OTHER ==
[2017-09-15 16:59] VITALS: BP 111/61; PULSE 71; TEMP 98.1; BMI 39.9
--- NOTE | 2017-09-15 17:18 | PDOC ---
History of Present Illness - General Chief Complaint: Wound Stated Complaint: WOUND CHECK Time Seen by Provider: 09/15/17 17:00 History Source: Patient Exam Limitations: No Limitations - History of Present Illness Initial Comments: 09/15/17 17:13 22-year-old female status post uneventful 3 weeks ago presents to the ED for evaluation of site. Patient states had noted some fluid on her under clothes. Patient denies fever, chills, increased tenderness to the area, redness or swelling. Timing/Duration: intermittent Associated Symptoms: reports: denies symptoms Past History - Travel Traveled outside of the country in the last 30 days: No - Past Medical History Allergies/Adverse Reactions: Allergies Allergy/AdvReac Type Severity Reaction Status Date / Time Fish Containing Products Allergy Verified 09/15/17 16:59 Home Medications: Ambulatory Orders NK [No Known Home Medication] 09/03/17 Asthma: No Cancer: No Cardiac Disorders: No COPD: No Diabetes: No HTN: No Seizures: No Thyroid Disease: No Other medical history: obesity - Suicide/Smoking/Psychosocial Hx Smoking Status: No Smoking History: Never smoked Have you smoked in the past 12 months: No Number of Cigarettes Smoked Daily: 0 Information on smoking cessation initiated: No Hx Alcohol Use: No Drug/Substance Use Hx: No Substance Use Type: None Hx Substance Use Treatment: No Patient Lives Alone: No Lives with/in: spouse/SO Review of Systems - Review of Systems Able to Perform ROS?: Yes Constitutional: No: Symptoms Reported ABD/GI: No: Symptoms Reported : No: Symptoms Reported Musculoskeletal: No: Symptoms Reported Integumentary: Yes: See HPI *Physical Exam - Vital Signs Last Vital Signs Temp Pulse Resp BP Pulse Ox 98.1 F 71 18 111/61 97 09/15/17 16:58 09/15/17 16:58 09/15/17 16:58 09/15/17 16:58 09/15/17 16:58 - Physical Exam General Appearance: Yes: Nourished, Appropriately Dressed. No: Apparent Distress Gastrointestinal/Abdominal: positive: Soft. negative: Tenderness Integumentary: positive: Other (Noted healed with a pinhead sized opening to the right lateral aspect with minimal serosanguineous drainage noted with expression. No palpable fluctuance. No increased warmth no redness no signs of infection.) Neurologic: positive: Motor Strength 5/5 (ambulatory) Medical Decision Making - Medical Decision Making 09/15/17 17:16 Patient here for evaluation of site. Patient on exam had no signs of infection. Remove Steri-Strips and cleansed with normal saline applying 3 new Steri-Strips to small opening on the right side of incision. Wound culture was also obtained. Patient given supportive care instructions. *DC/Admit/Observation/Transfer Diagnosis at time of Disposition: Visit for wound check - Discharge Dispostion Disposition: HOME Condition at time of disposition: Good - Referrals - Patient Instructions Printed Discharge Instructions: How to Care for a Surgical Wound Additional Instructions: Please keep area clean and dry wearing cotton underwear and allowing air to hit area as often as possible. If it develops any redness swelling or increased drainage please return to the ED. Otherwise notify the PRINT DEVELOPER [employer]. - Post Discharge Activity
--- NOTE | 2017-09-18 07:40 | PDOC ---
Patient Follow-up (Call Back) - Post ED Follow - Up Condition at time of discharge: Good Disposition at time of original discharge: HOME Reason for Call Back: Abnwl. Microbiology (Wound culture preliminary shows lactose fermenting negative bacilli, quantity rare. Will await final report. Currently on no antibiotics.)
--- NOTE | 2017-09-19 10:38 | PDOC ---
Patient Follow-up (Call Back) - Post ED Follow - Up Condition at time of discharge: Good Disposition at time of original discharge: HOME Reason for Call Back: Abnwl. Microbiology (+wound cx, sen to bactrim and IV abx Pt not on abx, was seen for csection wound Called to see how pt feeling and l/m to call back)
--- NOTE | 2017-09-20 12:32 | PDOC ---
Patient Follow-up (Call Back) - Post ED Follow - Up Condition at time of discharge: Good Disposition at time of original discharge: HOME Reason for Call Back: Abnwl. Microbiology (Patient with redness around c section scar, + wound culture, susceptible to Bactrim. Will call in script.)
--- NOTE | 2017-09-20 13:14 | PDOC ---
Patient Follow-up (Call Back) - Post ED Follow - Up Condition at time of discharge: Good Disposition at time of original discharge: HOME Reason for Call Back: Abnwl. Microbiology (Spoke with pt. regarding wound. Bactrim prescribed and sensitive. Pt. will pick up worker and start taking rx today.)
== END 2017-09-15 17:32 | disposition home or self-care (01) ==
LOC: JERFT 16:49
DX: O90.0 Disruption of cesarean delivery wound (principal); B96.89 Other specified bacterial agents as the cause of diseases classified elsewhere
CPT/HCPCS: 87070; 87186; 87205; 99281-25

== ENCOUNTER 2019-03-25 16:42 | Emergency (ER) | payer OTHER ==
[2019-03-25 16:51] VITALS: BP 117/60; PULSE 72; TEMP 98.7; BMI 42.5
--- NOTE | 2019-03-25 16:52 | PDOC ---
Rapid Medical Evaluation Time Seen by Provider: 03/25/19 16:48 Medical Evaluation: Allergies Allergy/AdvReac Type Severity Reaction Status Date / Time Fish Containing Products Allergy Verified 09/15/17 16:59 03/25/19 16:48 Pt with LLQ/pelvic pain for one week. She states the pain is worse with movement. She states it started with her menstrual cycle last week and did not resolve. Denies fevers ,chill ,n/v/d, frequency, urgency and hematuria Exam:TTP of the L adnexal region. NAD Orders: Labs, urine Pt to proceed to the ER for further evaluation Discharge Disposition - Diagnosis Abdominal pain Qualifiers: Abdominal location: left lower quadrant Qualified Code(s): R10.32 - Left lower quadrant pain - Referrals - Patient Instructions - Post Discharge Activity
--- NOTE | 2019-03-25 17:12 | PDOC ---
History of Present Illness - History of Present Illness Initial Comments: 03/25/19 17:55 Nica Barr is a 23yF with hx of obesity who is presenting with LLQ pain. States that the pain started 13 days ago with the start of her period. Describes as sharp, stabbing pain in LLQ of abdomen and mild pain in RLQ abdomen. Took 1 tylenol with no relief. Movement makes pain worse. Endorses urinary urgency, increased frequency, and burning with urination. No blood in urine, no vaginal discharge. No fever, chills, bowel changes. Sexually active with 1 male partner last 6mo, infrequent condom use. Treated for chlamydia infection at 15yo. . Full term, for delay of labor, no complications. No past gynecologic complications. No other abdominal surgeries. <Alexsander Sanchez - Last Filed: 03/25/19 22:01> <Carmela Garcia - Last Filed: 03/25/19 22:52> - General Chief Complaint: Pain, Acute Stated Complaint: ABD PAIN Time Seen by Provider: 03/25/19 16:48 Past History - Travel Close contact w/someone who was outside of country & ill: No - Past Medical History Asthma: No Cancer: No Cardiac Disorders: No COPD: No Diabetes: No HTN: No Seizures: No Thyroid Disease: No - Reproductive History LMP Normal: Yes (13 days ago) (#): 1 Para: 1 (1001) - Immunization History Immunization Up to Date: No - Suicide/Smoking/Psychosocial Hx Smoking Status: No Smoking History: Never smoked Have you smoked in the past 12 months: No Number of Cigarettes Smoked Daily: 0 Information on smoking cessation initiated: No Hx Alcohol Use: Yes (drinks 4-6 beers on weekend) Drug/Substance Use Hx: No Substance Use Type: None Hx Substance Use Treatment: No <Alexsander Sanchez - Last Filed: 03/25/19 22:01> <Carmela Garcia - Last Filed: 03/25/19 22:52> - Past Medical History Allergies/Adverse Reactions: Allergies Allergy/AdvReac Type Severity Reaction Status Date / Time Fish Containing Products Allergy Verified 09/15/17 16:59 Home Medications: Ambulatory Orders Sulfamethoxazole/Trimethoprim [Bactrim Ds -] 1 tab PO BID #20 tablet 09/20/17 Review of Systems - Review of Systems Able to Perform ROS?: Yes Is the patient limited Israeli proficient: No Constitutional: No: Chills, Fever, Loss of Appetite, Malaise, Night Sweats, Weakness HEENTM: No: Eye Pain, Ear Pain, Nose Pain, Throat Pain Respiratory: No: Cough, Shortness of Breath, Wheezing Cardiac (ROS): No: Chest Pain, Edema, Palpitations, Syncope, Chest Tightness ABD/GI: No: Abdominal Distended, Constipated, Diarrhea, Nausea, Poor Fluid Intake, Vomiting, Abdominal cramping : Yes: Burning, Frequency, Urgency. No: Discharge, Hematuria, Incontinence Musculoskeletal: No: Gout, Joint Pain, Joint Swelling, Muscle Pain, Joint Stiffness Integumentary: No: Bruising, Erythema, Flushing, Rash Neurological: No: Headache, Numbness, Paresthesia, Tremors Endocrine: No: Flushing, Increased Hunger, Change in Weight <Alexsander Sanchez - Last Filed: 03/25/19 22:01> *Physical Exam - Vital Signs Last Vital Signs Temp Pulse Resp BP Pulse Ox 98.7 F 72 18 117/60 100 03/25/19 16:48 03/25/19 16:48 03/25/19 16:48 03/25/19 16:48 03/25/19 16:48 - Physical Exam General Appearance: Yes: Nourished, Appropriately Dressed, Obese. No: Apparent Distress HEENT: positive: DONALD, Normal Voice, Pharynx Normal. negative: Pale Conjunctivae, Rhinorrhea Respiratory/Chest: positive: Lungs Clear, Normal Breath Sounds Cardiovascular: positive: Regular Rhythm, Regular Rate, S1, S2. negative: JVD, Murmur Female Pelvic Exam: positive: normal external exam, cervical os closed, normal adnexa, discharge (white). negative: adnexal tenderness, vaginal bleeding Gastrointestinal/Abdominal: positive: Normal Bowel Sounds, Flat, Soft, Tenderness (mild tenderness LLQ, minimal tenderness RLQ ), Other (no CVA tenderness). negative: Organomegaly, Distended, Guarding, Rebound, Mass, Hepatomegaly, Spleenomegaly Integumentary: positive: Normal Color Neurologic: positive: Fully Oriented, Alert, Responsive <Alexsander Sanchez - Last Filed: 03/25/19 22:01> - Vital Signs Last Vital Signs Temp Pulse Resp BP Pulse Ox 98.7 F 72 18 117/60 100 03/25/19 16:48 03/25/19 16:48 03/25/19 16:48 03/25/19 16:48 03/25/19 16:48 <Carmela Garcia - Last Filed: 03/25/19 22:52> ED Treatment Course - LABORATORY CBC & Chemistry Diagram: 03/25/19 18:16 03/25/19 18:16 <Alexsander Sanchez - Last Filed: 03/25/19 22:01> - LABORATORY CBC & Chemistry Diagram: 03/25/19 18:16 03/25/19 18:16 - ADDITIONAL ORDERS Additional order review: Laboratory Results 03/25/19 03/25/19 03/25/19 18:16 18:16 18:16 PT with INR INR Sodium 139 Potassium 3.7 Chloride 107 Carbon Dioxide 27 Anion Gap 5 L BUN 11.0 Creatinine 0.6 Est GFR (CKD-EPI)AfAm 148.90 Est GFR (CKD-EPI)NonAf 128.48 Random Glucose 86 Calcium 8.9 Total Bilirubin 0.3 AST 21 ALT 44 Alkaline Phosphatase 91 Total Protein 7.6 Albumin 3.9 Serum , Qual Negative Urine Color Yellow Urine Appearance Clear Urine pH 6.0 Ur Specific [place] 1.020 Urine Protein Negative Urine Glucose (UA) Negative Urine Ketones Negative Urine Blood Negative Urine Nitrite Negative Urine Bilirubin Negative Urine Urobilinogen 0.2 Ur Leukocyte Esterase 1+ H Urine WBC (Auto) 4 Urine RBC (Auto) 7 Urine Casts (Auto) 1 U Epithel Cells (Auto) 3.5 Urine Bacteria (Auto) 75.9 Urine HCG, Qual Negative 03/25/19 18:16 PT with INR 11.80 INR 1.00 Sodium Potassium Chloride Carbon Dioxide Anion Gap BUN Creatinine Est GFR (CKD-EPI)AfAm Est GFR (CKD-EPI)NonAf Random Glucose Calcium Total Bilirubin AST ALT Alkaline Phosphatase Total Protein Albumin Serum , Qual Urine Color Urine Appearance Urine pH Ur Specific Armbrust Urine Protein Urine Glucose (UA) Urine Ketones Urine Blood Urine Nitrite Urine Bilirubin Urine Urobilinogen Ur Leukocyte Esterase Urine WBC (Auto) Urine RBC (Auto) Urine Casts (Auto) U Epithel Cells (Auto) Urine Bacteria (Auto) Urine HCG, Qual 03/25/19 18:16 RBC 4.61 MCV 90.7 MCHC 33.3 RDW 13.0 D MPV 10.1 D Neutrophils % 61.5 D Lymphocytes % 29.0 D Monocytes % 6.4 Eosinophils % 2.3 D Basophils % 0.8 - Medications Given in the ED: ED Medications Discontinued Medications Generic Name Dose Route Start Last Admin Trade Name Kevin PRN Reason Stop Dose Admin Acetaminophen 975 mg 03/25/19 17:47 03/25/19 18:21 Tylenol - PO 03/25/19 17:48 975 mg ONCE ONE Administration Ibuprofen 600 mg 03/25/19 18:51 03/25/19 19:53 Motrin - PO 03/25/19 18:52 600 mg ONCE ONE Administration <Carmela Garcia - Last Filed: 03/25/19 22:52> Medical Decision Making - Critical Care Time Total Critical Care Time (minutes): 30 Critical Care Statement: The care of this patient involved high complexity decision making to prevent further life threatening deterioration of the patient 's condition and/or to evaluate & treat vital organ system(s) failure or risk of failure. - Medical Decision Making 03/25/19 18:00 Ordered CBC, chem, UA, HCG, chlamydia/gonorrhea swab Tylenol, ibuprofen for pain control - resolved Pelvic exam showed closed cervical os, physiologic discharge, no cervical/uterus /ovarian tenderness - normal UA (1+ leukocyte esterase), labs, HCG all negative Waiting for TVUS Nica Barr is a 23yF with hx of obesity presenting with LLQ pain. Suspicion for UTI (positive urinary symptoms) vs (infrequent condom use). Lower suspicion for ectopic , ovarian torsion, nephrolithiasis based on afebrile vitals, in no apparent distress. Negative test, normal pelvic exam, normal labs suggest MSK origin for pain, which has been resolved with tylenol and ibuprofen. Pending chlamydia/ gonorrhea. Ultrasound showed simple cyst 1.5x1.2cm in left ovary and 3.6x 2.4 cm vascular mass of unknown etiology adjacent to her left ovary. Consulted Dr. Agus peng for ultrasound findings, advised vascular mass was likely hemorrhagic cyst. Told to control pain control and follow up in outpatient clinic. <Alexsander Sanchez - Last Filed: 03/25/19 22:01> *DC/Admit/Observation/Transfer - Discharge Dispostion Decision to Admit order: No <Alexsander Sanchez - Last Filed: 03/25/19 22:01> <Carmela Garcia - Last Filed: 03/25/19 22:52> Diagnosis at time of Disposition: Ovarian cyst Abdominal pain Qualifiers: Abdominal location: left lower quadrant Qualified Code(s): R10.32 - Left lower quadrant pain - Discharge Dispostion Disposition: HOME Condition at time of disposition: Improved - Referrals Referrals: Rica Goldsmith MD [Staff Physician] - - Patient Instructions Printed Discharge Instructions: DI for Abdominal Pain-Adult, DI for Ovarian Cyst Additional Instructions: You were seen in the emergency department for abdominal pain. You were given tylenol and ibuprofen to stop the pain. Your pelvic exam and lab workup were normal. Please follow up with Dr Goldsmith obgyn doctor this week about this visit. Take tylenol, aspirin, or ibuprofen if you continue to have pain. Come back to the emergency department if you have worsening pain, bloody discharge, fever, or vomiting.
[2019-03-25] MEDS ORDERED: ACETAMINOPHEN 500 MG TABLET (FP) PO ONE (17:47)
[2019-03-25] MEDS ORDERED: ACETAMINOPHEN 325 MG TABLET (FP) ONE (18:02)
[2019-03-25 18:30] LABS: EPI CELLS 3.5 /HPF (0-5/HPF); HYALINE CASTS 1 /lpf (0-8); URINE APPEARANCE CLEAR; URINE BACTERIA 75.9 /hpf (NEGATIVE); URINE BILIRUBIN NEGATIVE (NEGATIVE); URINE COLOR YELLOW; URINE GLUCOSE (UA) NEGATIVE (NEGATIVE); URINE KETONE NEGATIVE (NEGATIVE); URINE LEUK ESTERASE 1+ (NEGATIVE); URINE NITRITE NEGATIVE (NEGATIVE); URINE PROTEIN NEGATIVE (NEGATIVE); URINE RBC 7 /hpf (0-4); URINE UROBILINOGEN 0.2 mg/dL (0.2-1.0); URINE WBC 4 /hpf (0-5)
[2019-03-25 18:31] LABS: HCG,QUALITATIVE URINE Negative
[2019-03-25 18:32] LABS: BASO % 0.8 % (0-2.0); EOS % 2.3 % (0-4.5); HEMATOCRIT 41.8 % (32.4-45.2); HEMOGLOBIN 13.9 GM/dL (10.7-15.3); MCH 30.2 pg (25.7-33.7); MCHC 33.3 g/dl (32.0-36.0); MEAN CELL VOLUME 90.7 fl (80-96); MEAN PLT VOLUME 10.1 fl (7.5-11.1); MONO % 6.4 % (3.8-10.2); NEUT % 61.5 % (42.8-82.8); PLATELET COUNT 157 K/MM3 (134-434); RBC 4.61 M/mm3 (3.60-5.2); WHITE BLOOD COUNT 7.5 K/mm3 (4.0-10.0)
[2019-03-25 18:34] LABS: PROTHROMBIN TIME (PATIENT) 11.8 SEC (9.7-13.0)
--- NOTE | 2019-03-25 18:37 | PDOC ---
Documentation entered by Christie Lopez SCRIBE, acting as scribe for Carmela Garcia MD. Carmela Garcia MD: This documentation has been prepared by the Jessica rodriguez Adrianna, SCRIBE, under my direction and personally reviewed by me in its entirety. I confirm that the documentation accurately reflects all work, treatment, procedures, and medical decision making performed by me. Attending Attestation - Resident Resident Name: LauraAlexsander - ED Attending Attestation I have performed the following: I have examined & evaluated the patient, The case was reviewed & discussed with the resident, I agree w/resident's findings & plan - HPI HPI: 23 y/o female, with past medical history of obesity, who presents with abdominal pain x 1 week. Patient complains of sharp pain over the LLQ and pelvic region, that is exacerbated with movement. She states that it originally began with her menstrual cycle, but has not resolved. LMP approximately 2 weeks ago, finished about 1 week ago. She is sexually active with one partner, no condom use. Denies urinary symptoms, vaginal discharge, fever, chills, chest pain no control usually regular periods every month, no heavy periods but does admit to the last period having emotions and being more tearful/cranky Allergies: None Past Medical History: Obesity Social history: Lives with family. No tobacco, ETOH or drug use. Surgical history: Meds: as documented in EMR 03/25/19 17:47 03/25/19 18:54 - Physicial Exam PE: Agree with the resident's HPI and PE as documented in the electronic medical record. NAD, well appearing, EOMI, PERRL, MMM, nl conjunctiva, anicteric; neck supple. lungs clear, RRR, abdomen soft +LLQ tenderness, no reobund or guarding. no CVAT. Back nontender. YOO x4, no focal neuro deficits. No peripheral edema. normal color for ethnicity, WWP. pelvic exam by resident, chaperoned by Dr Mills no acute pathology, no bleed, no CMT and no adnexal tenderness. 03/25/19 17:15 03/25/19 22:52 - Medical Decision Making 03/25/19 18:55 hpi as documented VS reviewed wnl DDx female abdominal pain/VB: ovarian cyst, ovarian torsion, TOA, appy, UTI, pyelonephritis, STD/PID, Mittelschmerz, anemia, electrolyte/metabolic derangements, DUB labs and lytes_wnl UA neg preg test neg TVUS to check for ovarian cyst/structural abnormalities; clinically doubt torsion based on history and physical does have +LLQ and RLQ pelvic Tenderness, no rebound or guarding no flank tenderness given analgesia tylenol and motrin s/o overnight team, Dr Del Valle pending results and workup, ultimate dispo and clinical reeval. 03/25/19 22:53
[2019-03-25] MEDS ORDERED: IBUPROFEN 600 MG TABLET (FP) PO ONE ×2 (18:51→19:49)
[2019-03-25 18:57] LABS: ALBUMIN 3.9 g/dl (3.4-5.0); BILIRUBIN,TOTAL 0.3 mg/dL (0.2-1); CALCIUM 8.9 mg/dL (8.5-10.1); CREATININE 0.6 mg/dL (0.55-1.3); POTASSIUM 3.7 mmol/L (3.5-5.1); TOT PROT 7.6 g/dl (6.4-8.2)
== END 2019-03-25 22:16 | disposition home or self-care (01) ==
LOC: JER 16:42
DX: N83.202 Unspecified ovarian cyst, left side (principal)
CPT/HCPCS: 36415; 76830-TC; 80053; 81003; 84703; 85025; 85610; 87086; 87491; 87591; 99282-25

== ENCOUNTER 2020-11-01 09:59 | Emergency (ER) | payer OTHER ==
[2020-11-01 10:15] VITALS: BP 120/58; PULSE 77; TEMP 98; BMI 43.0
[2020-11-01 14:01] LABS: HCG,QUALITATIVE URINE Negative
[2020-11-01 14:11] LABS: EPI CELLS >36 /uL (0-25.1); HYALINE CASTS 1 /uL (0-3.1); URINE APPEARANCE CLOUDY; URINE BACTERIA 990 /uL (0-1359); URINE BILIRUBIN NEGATIVE (NEGATIVE); URINE COLOR YELLOW; URINE GLUCOSE (UA) NEGATIVE (NEGATIVE); URINE KETONE NEGATIVE (NEGATIVE); URINE LEUK ESTERASE 1+ (NEGATIVE); URINE NITRITE NEGATIVE (NEGATIVE); URINE PROTEIN NEGATIVE (NEGATIVE); URINE RBC 8 /uL (0-23.9); URINE UROBILINOGEN 0.2 mg/dL (0.2-1.0); URINE WBC 78 /uL (0-25.8)
== END 2020-11-01 14:30 | disposition home or self-care (01) ==
LOC: JER 09:59
DX: N39.0 Urinary tract infection, site not specified (principal)
CPT/HCPCS: 76830-TC; 81003; 84703; 87086; 99284-25

== ENCOUNTER 2022-11-30 19:33 | Emergency (ER) | payer OTHER ==
[2022-11-30 19:39] VITALS: BP 133/83; PULSE 78; RESP 18; TEMP 98.2; BMI 49.1
[2022-11-30] MEDS ORDERED: ONDANSETRON 4 MG TABLET PO ONE (20:51)
[2022-11-30] MEDS ORDERED: ONDANSETRON *ODT* 4 MG TABLET ONE (21:38)
[2022-11-30 22:25] LABS: EPI CELLS 25 /uL (0-25.1); HYALINE CASTS 0 /uL (0-3.1); PH,URINE 6.5 (5.0-8.0); URINE APPEARANCE CLEAR; URINE BACTERIA 102 /uL (0-1359); URINE BILIRUBIN NEGATIVE (NEGATIVE); URINE COLOR ORANGE; URINE GLUCOSE (UA) NEGATIVE (NEGATIVE); URINE KETONE NEGATIVE (NEGATIVE); URINE LEUK ESTERASE 2+ (NEGATIVE); URINE NITRITE NEGATIVE (NEGATIVE); URINE PROTEIN NEGATIVE (NEGATIVE); URINE RBC 16 /uL (0-23.9); URINE WBC 79 /uL (0-25.8)
[2022-11-30] MEDS ORDERED: SULFAMETHOXAZOLE/TRIMETHOPRIM 800MG/160MG D.S. TABLET PO ONE (22:28)
[2022-11-30] MEDS ORDERED: SULFAMETHOXAZOLE/TRIMETHOPRIM 800MG/160MG D.S. TABLET ONE (23:04)
== END 2022-11-30 23:23 | disposition home or self-care (01) ==
LOC: JER 19:33
DX: N39.0 Urinary tract infection, site not specified (principal)
CPT/HCPCS: 81003; 84703; 87086; 99283-25

== ENCOUNTER → 2023-01-01 | Emergency (ER) | payer OTHER ==
[2023-01-01 22:43] VITALS: BP 129/75; PULSE 68; RESP 18; TEMP 98.4; BMI 45.3
== END ==
LOC: JER 22:33
DX: R10.12 Left upper quadrant pain (principal); M54.9 Dorsalgia, unspecified; R11.2 Nausea with vomiting, unspecified
CPT/HCPCS: 99281-25

== ENCOUNTER 2024-07-22 12:08 | Emergency (ER) | payer OTHER ==
[2024-07-22] MEDS ORDERED: ACETAMINOPHEN INJECTION 100 ML ONE (13:08)
[2024-07-22] MEDS ORDERED: KETOROLAC TROMETHAMINE 30 MG/1 ML VIAL ONE (13:09)
[2024-07-22 13:20] VITALS: TEMP 98.3; BMI 43.4
[2024-07-22 13:47] LABS: BASO % 0.8 % (0-2.0); EOS % 6.4 % (0-4.5); HEMATOCRIT 39.6 % (32.4-45.2); HEMOGLOBIN 13.5 GM/dL (10.7-15.3); LYMPH % 32.1 % (8-40); MCHC 34.2 g/dl (32.0-36.0); MEAN CELL VOLUME 87.7 fl (80-96); MEAN PLT VOLUME 9.8 fl (7.5-11.1); MONO % 4.3 % (3.8-10.2); NEUT % 56.4 % (42.8-82.8); PLATELET COUNT 181 10^3/uL (134-434); RBC 4.51 M/mm3 (3.60-5.2); RDW 13.5 % (11.6-15.6); WHITE BLOOD COUNT 6.9 K/mm3 (4.0-10.0)
[2024-07-22 13:51] LABS: EPI CELLS >36 /uL (0-25.1); HYALINE CASTS 1 /uL (0-3.1); URINE APPEARANCE CLOUDY; URINE BACTERIA 1104 /uL (0-1359); URINE BILIRUBIN NEGATIVE (NEGATIVE); URINE COLOR YELLOW; URINE GLUCOSE (UA) NEGATIVE (NEGATIVE); URINE KETONE NEGATIVE (NEGATIVE); URINE LEUK ESTERASE 2+ (NEGATIVE); URINE NITRITE NEGATIVE (NEGATIVE); URINE PROTEIN NEGATIVE (NEGATIVE); URINE RBC 13 /uL (0-23.9); URINE WBC 216 /uL (0-25.8)
[2024-07-22 13:52] LABS: HCG,QUALITATIVE URINE Negative
[2024-07-22] MEDS: ACETAMINOPHEN 1000 MG/100 ML BAG IVPB ONE (13:55)
[2024-07-22] MEDS: KETOROLAC TROMETHAMINE 30 MG/1 ML VIAL IVPUSH ONE (13:55)
[2024-07-22 14:19] LABS: POTASSIUM 4.2 mmol/L (3.5-5.1)
[2024-07-22 14:21] LABS: CALCIUM 8.9 mg/dL (8.5-10.1)
[2024-07-22 14:22] LABS: ALBUMIN 3.6 g/dl (3.4-5.0); BLOOD UREA NITROGEN 12.6 mg/dL (7-18)
[2024-07-22 14:25] LABS: CREATININE 0.7 mg/dL (0.55-1.3)
[2024-07-22 14:26] LABS: BILIRUBIN,TOTAL 0.6 mg/dL (0.2-1); TOT PROT 7.6 g/dl (6.4-8.2)
[2024-07-22 17:35] VITALS: BP 109/62; PULSE 70; RESP 20
[2024-07-22] MEDS ORDERED: CEPHALEXIN MONOHYDRATE 500 MG CAPSULE (UD) ONE (18:03)
[2024-07-22] MEDS: CEPHALEXIN MONOHYDRATE 500 MG CAPSULE (UD) PO ONE (18:05)
== END 2024-07-22 18:27 | disposition home or self-care (01) ==
LOC: JER 12:08
PROC: 3E033NZ Introduction of Analgesics, Hypnotics, Sedatives into Peripheral Vein, Percutaneous Approach (ICD-10-PCS; principal; 2024-07-22)
PROC: 3E0333Z Introduction of Anti-inflammatory into Peripheral Vein, Percutaneous Approach (ICD-10-PCS; 2024-07-22)
DX: R10.32 Left lower quadrant pain (principal); N83.202 Unspecified ovarian cyst, left side; N30.00 Acute cystitis without hematuria; N85.00 Endometrial hyperplasia, unspecified; R35.0 Frequency of micturition; R11.0 Nausea
CPT/HCPCS: 36415; 76830-TC; 80053; 81003; 84703; 85025; 87086; 87186; 87491; 87591; 87661; 99284-25; J0131